=== PATIENT | male | born 1955 ===

== ENCOUNTER → 2024-07-22 10:14 | Outpatient (BNVA) | payer MEDICARE, OTHER, SELFPAY | PROVIDERS: Visit Provider Nurse Practitioner Family | DX: L71.8 Other rosacea (principal); B35.3 Tinea pedis; B35.1 Tinea unguium; M71.341 Other bursal cyst, right hand; L82.1 Other seborrheic keratosis; L91.8 Other hypertrophic disorders of the skin; D23.72 Other benign neoplasm of skin of left lower limb, including hip; L57.0 Actinic keratosis | CPT/HCPCS: 17000; 99203 ==